=== PATIENT | female | born 1945 | race Caucasian/White ===

== ENCOUNTER → 2016-10-11 | Outpatient (CLI) | payer MEDICARE, BC ==
--- NOTE | 2016-10-11 14:16 | CR ---
EXAMINATION: Left knee HISTORY: Pain COMPARISON: 09/11/2015, 07/23/2015 TECHNIQUE: 2 views FINDINGS/IMPRESSION: Osteophyte formation is noted within the patellofemoral compartment. No fractur e or acute osseous abnormalities noted. There is induration of Hoffa's fat pad without a significant suprapatellar joint effusion.
== END ==
LOC: MW.CHORTHO 11:04
PROVIDERS: ATTEND Orthopaedic Surgery
DX: M25.562 Pain in left knee (principal); M17.12 Unilateral primary osteoarthritis, left knee
CPT/HCPCS: 73560-26-LT; 73560-LT; 99214

== ENCOUNTER 2016-11-07 10:13 | Inpatient (IN) | payer MEDICARE, BC ==
[~2016-11-07 10:13] MED LIST: Acetaminophen 1,000 MG in Premix Bag 1 BAG IV SCH; Famotidine 20 MG/2 ML SDV IVPUSH SCH; Ropivacaine 49.25 ML, EPINEPHrine 0.5 MG, cloNIDine 80 MCG in Sodium Chloride 0.9% 48.4... INJECT SCH; Scopolamine 1.5 MG Transdermal Patch TRDERM SCH; Tranexamic Acid 4,000 MG in Sodium Chloride 0.9% 100 ML IV SCH; ceFAZolin 1 GM in Premix Bag 1 BAG IV SCH; oxyCODONE ER 10 MG TAB.ER PO SCH
--- NOTE | 2016-11-07 10:33 | PCM.OPNOTE ---
- General Post-Op/Procedure Note Date of Surgery/Procedure: 11/07/16 Operative Procedure(s): L TKA Post-Op Diagnosis: DJD L knee Anesthesia Technique: General ET tube, Spinal Primary Surgeon: Nicole Pritchard Online Advertising Manager: Mary Jane Lopez Online Advertising Manager: Marilee Stewart EBSaida in mLs: 50 Condition: Good Free Text/Narrative:: tt=50 min #[id number]
[2016-11-07] MEDS: Lactated Ringers 1,000 ML IV SCH ×2 (10:40→16:06)
--- NOTE | 2016-11-07 11:10 | PCM.PREANE ---
Preanesthetic Assessment - Procedure Proposed Procedure: Left Total Knee Arthroplasty - Anesthesia/Transfusion/Family Hx Anesthesia History: Prior Anesthesia Without Reaction Family History of Anesthesia Reaction: No Transfusion History: Prior Transfusion Without Reaction Intubation History: Unknown - Review of Systems General: No Symptoms Pulmonary: No Symptoms Cardiovascular: Other (hypertension - treated with 3 drug regimen) Gastrointestinal: No symptoms Neurological: Other (pain in bilateral knees) Other: Reports: None - Physical Assessment NPO Status Date: 11/06/16 NPO Status Time: 22:00 Height: 5 ft 6.5 in Weight: 178 lb ASA Class: 3 Mental Status: Alert & Oriented x3 Airway Class: Mallampati = 1 Dentition: Reports: Martha(s) (all - upper and lower) Thyro-Mental Finger Breadths: 3 Mouth Opening Finger Breadths: 3 ROM/Head Extension: Full Lungs: Clear to auscultation, Normal respiratory effort Cardiovascular: Regular Rate, Regular Rhythm, No Murmurs - Allergies Allergies/Adverse Reactions: Allergies Allergy/AdvReac Type Severity Reaction Status Date / Time celecoxib [From Celebrex] Allergy Redness Verified 07/28/16 08:25 fenofibrate [From Tricor] Allergy Arrhythmias Verified 07/28/16 08:25 Sulfa (Sulfonamide Allergy Redness Verified 07/28/16 08:25 Antibiotics) - Blood Blood Available: Yes Product(s) Available: PRBC (T and S) - Anesthesia Plan Pre-Op Medication Ordered: Antacids - Acknowledgements Anesthesia Type Planned: General Anesthesia, Spinal Pt an Appropriate Candidate for the Planned Anesthesia: Yes Alternatives and Risks of Anesthesia Discussed w Pt/Guardian: Yes Pt/Guardian Understands and Agrees with Anesthesia Plan: Yes PreAnesthesia Questionnaire HEENT History: Reports: Retinal detachment Other HEENT History: wears glasses Cardiovascular History: Reports: High cholesterol, Hypertension Gastrointestinal History: Reports: None Genitourinary History: Reports: None 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: Musculoskeletal History: Reports: Arthritis Neurological History: Reports: None Hematologic History: Reports: Blood transfusion(s) Other Hematologic History: blood transfusion prior to hysterectomy - Past Surgical History Head Surgeries/Procedures: Reports: None Other HEENT Surgeries/Procedures: hx surgery for detached retina x3 GI Surgical History: Reports: Colonoscopy Other GI Surgeries/Procedures: hx colonoscopy and hemorrhoidectomy Female Surgical History: Reports: Hysterectomy Neurological Surgical History: Reports: Thoracic spine Other Neurological Surgeries/Procedures: hx back surgery for ruptured disc Musculoskeletal Surgical History: Reports: Other (see below) Other Musculoskeletal Surgeries/Procedures:: hx bunionectomy in jul, 2016, hx back surgery - SUBSTANCE USE Smoking Status *Q: Never Smoker Recreational Drug Use History: No - HOME MEDS Home Medications: Home Meds Atenolol/Chlorthalidone [Atenolol-Chlorthalidone 100-25] 1 tab PO DAILY [History] Lisinopril 40 mg PO DAILY 07/28/16 [History] Rosuvastatin [Crestor] 5 mg PO ASDIRECTED 07/28/16 [History] amLODIPine [Norvasc] 1 tab PO DAILY 07/28/16 [History] cycloSPORINE [Restasis] 1 drop EYEBOTH BID 07/28/16 [History] - CURRENT (IN HOUSE) MEDS Current Meds: Current Medications Famotidine (Pepcid) 40 mg IVPUSH ONARRIVE [facility] Last Admin: 11/07/16 11:00 Dose: 40 mg Acetaminophen 1,000 mg/ Premix 100 mls @ 400 mls/hr IV ONARRIVE [facility] Last Admin: 11/07/16 11:02 Dose: 400 mls/hr Ropivacaine 49.25 ml/Epinephrine HCl 0.5 mg/Clonidine HCl 80 mcg/ Sodium Chloride 99 mls @ 50 mls/min INJECT SEECOMMENT [facility] Lactated Ringer's (Ringers, Lactated) 1,000 mls @ 100 mls/hr IV ASDIRECTED [facility] Last Admin: 11/07/16 10:40 Dose: 100 mls/hr Tranexamic Acid 4,000 mg/ (Sodium Chloride) 140 mls @ 600 mls/hr IV ASDIRECTED [facility] Cefazolin Sodium/Dextrose 1 gm (/ Premix) 50 mls @ 100 mls/hr IV ONCALL [facility] Oxycodone HCl (Oxycontin) 10 mg PO ONARRIVE [facility] Last Admin: 11/07/16 11:00 Dose: 10 mg Scopolamine (Transderm-Scop) 1.5 mg TRDERM ONARRIVE [facility] Last Admin: 11/07/16 11:01 Dose: 1.5 mg
[2016-11-07] MEDS ORDERED: Midazolam 1 MG/ML 2 ML SDV ONE (11:16)
[2016-11-07] MEDS ORDERED: Lidocaine 2% 5 ML SDV ONE (11:16)
[2016-11-07] MEDS ORDERED: Propofol 200 MG/20 ML SDV ONE (11:16)
[2016-11-07] MEDS ORDERED: fentaNYL 100 MCG/2 ML SDV ONE ×2 (11:16→11:31)
[2016-11-07] MEDS ORDERED: Ondansetron 4 MG/2 ML SDV ONE (11:17)
[2016-11-07] MEDS ORDERED: ePHEDrine 50 MG/ML SDV ONE (11:17)
[2016-11-07] MEDS ORDERED: Succinylcholine/Normal Saline 200 MG/10 ML Syringe ONE (11:26)
[2016-11-07] MEDS ORDERED: ceFAZolin 1 GM Vial ONE (13:31)
[2016-11-07] MEDS ORDERED: fentaNYL 100 MCG/2 ML SDV IVPUSH PRN (13:55)
[2016-11-07] MEDS ORDERED: Phenylephrine/Normal Saline 100 MCG/ML 10 ML Syringe ONE (14:00)
[2016-11-07] MEDS ORDERED: Morphine 4 MG/ML Syringe IVPUSH PRN (14:29)
[2016-11-07] MEDS ORDERED: Aluminum Hydroxide/Magnesium Hydroxide/Simethicone Susp 30 ML Cup PO PRN (14:29)
[2016-11-07] MEDS ORDERED: diphenhydrAMINE 25 MG Cap PO PRN (14:29)
[2016-11-07] MEDS ORDERED: Bisacodyl 10 MG Supp RECTAL PRN (14:29)
[2016-11-07] MEDS ORDERED: Rosuvastatin 10 MG Tab PO SCH (14:45)
--- NOTE | 2016-11-07 15:36 | PCM.POSTAN ---
POST ANESTHESIA ASSESSMENT - MENTAL STATUS Mental Status: alert, oriented - VITAL SIGNS Pulse Rate: 89 SaO2: 96 Resp Rate: 16 Blood Pressure: 140/69 - RESPIRATORY Respiratory Status: respiratory rate WNL, airway patent, O2 saturation stable, supplemental oxygen (per nc) - CARDIOVASCULAR CV Status: pulse rate WNL, blood pressure stable - GASTROINTESTINAL GI Status: no symptoms - PAIN Pain Score: 0 (spinal intact) - POST OP HYDRATION Hydration Status: adequate & stable
[2016-11-07] MEDS: Acetaminophen 1,000 MG in Premix Bag 1 BAG IV SCH ×2 (16:25→22:32)
--- NOTE | 2016-11-07 17:42 | CR ---
EXAMINATION: Left knee HISTORY: Arthroplasty COMPARISON: 10/11/2016 TECHNIQUE: 2 views FINDINGS/IMPRESSION: Left total knee hardware is demonstrated in good position and alignment. Posto perative soft tissue changes noted.
[2016-11-07] MEDS: oxyCODONE 5 MG Tab PO PRN (17:55)
[2016-11-07] MEDS: Ketorolac 15 MG/ML SDV IVPUSH SCH (19:54)
[2016-11-07] MEDS: oxyCODONE ER 10 MG TAB.ER PO SCH (21:18)
[2016-11-07] MEDS: ceFAZolin 2 GM in Premix Bag 1 BAG IV SCH (21:19)
[2016-11-07] MEDS: Docusate Sodium 100 MG Cap PO SCH (21:19)
--- NOTE | 2016-11-07 21:20 | OR ---
SURGEON: Nicole Pritchard MD DATE OF PROCEDURE: 11/07/2016 PREOPERATIVE DIAGNOSIS: Degenerative joint disease, left knee, tricompartmental. POSTOPERATIVE DIAGNOSIS: Degenerative joint disease, left knee, tricompartmental. PROCEDURE: Left total knee arthroplasty using patient specific instrumentation. ASSISTANTS: Mary Jane Lopez PA-C and Marilee Stewart PA-C. ANESTHESIA: Spinal and general. ESTIMATED BLOOD LOSS: 50 mL. TOURNIQUET TIME: 50 minutes. COMPLICATIONS: None. DVT PROPHYLAXIS: PAS boot and MACO hose to the nonoperative leg. IMPLANTS USED: Nestor Persona femoral component size 9 narrow (LPS), tibial component size E, 12-mm all-polyethylene articular insert, and 32-mm all-polyethylene patella. FINDINGS: Intraoperative findings showed tricompartmental degenerative changes with valgus deformity. Wear was noted to be greater in the lateral compartment. Osteophyte formation was also noted. No significant synovitis was found. She did have substantial recurvatum of the knee on her preoperative exam along with the valgus malalignment. 1 g of tranexamic acid was given IV prior to the start of the case. An additional gram was given IV upon deflation of the tourniquet. 1 g of tranexamic acid was given topically into the wound as the cement was allowed to cure. BRIEF HISTORY: Dennise is a 71-year-old female, who has had complaint of progressive left knee pain. She had failed conservative treatment. Due to her lack of response to conservative treatment, I did recommend surgical intervention. The risks and goals of procedure were discussed with the patient and were documented preoperatively. She agreed to proceed. DESCRIPTION OF PROCEDURE: The patient was properly identified and brought to the operating room. The patient was then transferred from the operating room cart and placed on the operating table in a supine position. Anesthesia was administered by the anesthesia staff. After adequate anesthesia was obtained, a well-padded tourniquet was applied to the surgical lower extremity. The lower extremity was then prepped in standard fashion using ChloraPrep solution. It was then sterilely draped. A time-out was performed to ensure correct site and procedure. Preoperative antibiotics were given. The surgical site had been marked preoperatively. An Esmarch was used to exsanguinate the right lower extremity and the tourniquet was inflated. An incision was made over the anterior aspect of the knee. The subcutaneous tissues were dissected down to the level of the fascia. A medial parapatellar approach to the knee was made. A portion of the infrapatellar fat pad was then excised. The distal femur was then exposed. The femoral patient-specific cutting guide was then placed. Pins were also placed. The distal femoral cutting block was placed and the distal femoral cut was made. Instrumentation was then removed. Both Whitesides' line and the epicondylar axis were then marked with electrocautery. The 4-in-1 cutting block was placed. This was placed in a slightly externally rotated position, which corresponded well with the previously drawn lines. The cutting guide was then pinned into position. An Sanjiv wing guide was used to check the depth of resection of our anterior condylar cut and it was felt that no notching would occur. The anterior condylar cut was then made followed by the posterior condylar cut. Both the posterior chamfer and anterior chamfer cuts were then made. The cutting block was then removed along with the excess bony remnants. We then turned our attention to the tibia. The anterior cruciate ligament and posterior cruciate ligament were released and a posterior cruciate ligament retractor was placed to allow the tibia to be pulled anteriorly. The tibial patient-specific guide was then placed on the proximal tibia. This fit anatomically. The pins were then placed. The proximal tibia cutting guide was then placed and screwed into position. The proximal tibial resection was then made with care being taken to protect the patellar tendon. The bony resection was then removed. The remainder of the medial and lateral meniscus were then excised. Care was taken to protect the popliteus tendon. The tibia was then sized to the appropriate size. The distal femur was then elevated. The posterior capsule was stripped off the distal femur both medially and laterally. The posterior capsule along with the medial and lateral gutters were then injected with a standard mixture consisting of clonidine, epinephrine, Morphine, Toradol, and Ropivacaine, unless any allergies were found preoperatively. The femoral component was then placed onto the distal femur in a slightly lateral position. This fit the femur well. A box cut was then made without difficulty. This was then removed. The tibial trial along with the polyethylene liner was then placed. The knee came easily into full extension and was stable to varus and valgus stressing both in full extension and flexion. Any additional releases were performed at this time. We then returned our attention to the patella. The patella was everted and towel clamps were used to hold the patella in position. It was resected to a 15 millimeter thickness. It was then sized to the appropriate size. It was prepared in the usual fashion after placing the predetermined size clamps. This was placed in a slightly superior and medial position. The clamp was then removed. The patellar trial button was placed. The knee was taken through a range of motion using the no-touch technique. The patella tracked centrally. A drop quan was then placed to check alignment. All instruments were then removed from the knee. The tibial sizer was then placed on the tibia. The tibia was prepared in the usual fashion using the reamer and broach. This was then removed. All bony surfaces were copiously irrigated with Pulsavac solution. They were then suctioned dry. Cement was prepared on the back table in the usual manner. Once it was prepared, the bone ends were again suctioned dry. The tibia was cemented into place first. This was malleted into position. Excess cement was then cleared. The femur was then placed in a similar manner. We placed the polyethylene trial into place and the knee was brought into full extension. An axial load was placed while keeping the knee in full extension. The patella button was also cemented into position and the clamp was used to hold this in place as the cement was allowed to cure. After we had adequate curing of the cement, the knee was again taken through a range of motion. The size of the polyethylene was then determined. The polyethylene trial was then removed. The tibial tray was suctioned to make sure there was no remaining soft tissue or cement. Excess cement was cleared from around the edges of the prosthesis as well. The tourniquet was then deflated. We were able to observe for any excess bleeding and none was noted. Electrocautery was used to maintain hemostasis. The retractors were again placed and the predetermined polyethylene was then placed. This was locked into position without difficulty. The knee was again taken through a range of motion with no change from the prior exam. The wound was then copiously irrigated with Pulsavac solution. The fascial layer was closed with Number One Vicryl. The subcutaneous tissues were closed with 2-0 Vicryl. The skin was closed with samuel. Xeroform gauze was placed over the wound and a bulky dressing was applied. The patient was then awakened from anesthesia and transferred back to the operating room cart. They were brought to the recovery room in stable condition. All needle and sponge counts were correct. LESA PARKER /[id number]
[2016-11-07] MEDS: RESTASIS OPTH EYEBOTH SCH (21:25)
[2016-11-08] MEDS: oxyCODONE 5 MG Tab PO PRN ×2 (00:49→12:40)
[2016-11-08] MEDS: Ketorolac 15 MG/ML SDV IVPUSH SCH ×2 (01:01→07:59)
[2016-11-08] MEDS: Lactated Ringers 1,000 ML IV SCH (02:46)
[2016-11-08] MEDS: ceFAZolin 2 GM in Premix Bag 1 BAG IV SCH (04:47)
[2016-11-08] MEDS: Acetaminophen 500 MG Tab PO SCH ×4 (04:49→23:08)
[2016-11-08] MEDS: Ondansetron 4 MG/2 ML SDV IV PRN (04:50)
[2016-11-08] MEDS ORDERED: Sodium Chloride 0.9% 10 ML Syringe FLUSH PRN (08:01)
[2016-11-08] MEDS ORDERED: Sodium Chloride 0.9% 2.5 ML Syringe FLUSH PRN (08:01)
--- NOTE | 2016-11-08 08:06 | PCM.SURGPN ---
<Mary Jane Lopez R - Last Filed: 11/08/16 08:01> - General Info Date of Service: 11/08/16 Date of Surgery/Procedure: 11/07/16 POD#: 1 Functional Status: Reports: pain controlled - Review of Systems General: Reports: No Symptoms Pulmonary: Denies: shortness of breath Cardiovascular: Denies: Chest Pain Gastrointestinal: Reports: Nausea, Vomiting Musculoskeletal: Reports: leg pain Systems Review Comment:: pt resting comfortably in bed pain controlled c/o nausea/vomiting overnight, maybe improved with zofran, pt can't recall no specific concerns today - Patient Data Vitals - most recent: Last Vital Signs Temp 97.4 F 11/08/16 04:00 Pulse 73 11/08/16 04:00 Resp 14 11/08/16 04:00 BP 124/69 11/08/16 04:00 Pulse Ox 93 L 11/08/16 04:00 Weight - most recent: 80.739 kg I&O - last 24 hours: Intake & Output 11/07/16 11/08/16 11/08/16 22:59 06:59 14:59 Intake Total 2700 900 Output Total 150 1150 Balance 2550 -250 Lab Results last 24 hrs: Laboratory Results - last 24 hr 11/07/16 11/08/16 Range/Units 10:45 05:13 Hgb 11.3 L (12.0-16.0) g/dL Hct 34.4 L (36.0-46.0) % Blood Type B POSITIVE Antibody Screen NEGATIVE Med Orders - Current: Current Medications Acetaminophen (Tylenol Extra Strength) 1,000 mg PO Q6H YOON Last Admin: 11/08/16 04:49 Dose: 1,000 mg Al Hydroxide/Mg Hydroxide (Mag-Al Plus) 30 ml PO Q4H PRN PRN Reason: indigestion Amlodipine Besylate (Norvasc) 2.5 mg PO DAILY [facility] Aspirin (Aspirin) 325 mg PO BID YOON Atenolol (Tenormin) 100 mg PO DAILY [facility] Bisacodyl (Dulcolax) 10 mg RECTAL DAILY PRN PRN Reason: Constipation Chlorthalidone (Chlorthalidone) 25 mg PO DAILY [facility] Diphenhydramine HCl (Benadryl) 25 - 50 mg PO Q6H PRN PRN Reason: Itching Docusate Sodium (Colace) 100 mg PO BID [facility] Last Admin: 11/07/16 21:19 Dose: 100 mg Famotidine (Pepcid) 40 mg PO DAILY [facility] Fentanyl (Sublimaze) 50 mcg IVPUSH Q5M PRN PRN Reason: Pain (severe 7-10) Stop: 11/08/16 13:55 Ketorolac Tromethamine (Toradol) 15 mg IVPUSH Q6H [facility] Stop: 11/08/16 09:00 Last Admin: 11/08/16 07:59 Dose: 15 mg Lisinopril (Prinivil) 40 mg PO DAILY [facility] Morphine Sulfate (Morphine) 1 - 3 mg IVPUSH Q3H PRN PRN Reason: Pain Last Admin: 11/07/16 18:48 Dose: 2 mg Ondansetron HCl (Zofran) 4 mg IV Q6HR PRN PRN Reason: NAUSEA/VOMITING Last Admin: 11/08/16 04:50 Dose: 4 mg Oxycodone HCl (Oxycontin) 10 mg PO ONARRIVE [facility] Last Admin: 11/07/16 11:00 Dose: 10 mg Oxycodone HCl (Oxycodone) 5 - 10 mg PO Q4H PRN PRN Reason: Pain Last Admin: 11/08/16 00:49 Dose: 10 mg Oxycodone HCl (Oxycontin) 10 mg PO Q12HR [facility] Last Admin: 11/07/16 21:18 Dose: 10 mg Restasis ( Cyclosporine) Opth Drops 1 each EYEBOTH BID [facility] Last Admin: 11/07/16 21:25 Dose: Not Given Rosuvastatin Calcium (Crestor) 5 mg PO ASDIRECTED [facility] Scopolamine (Transderm-Scop) 1.5 mg TRDERM ONARRIVE [facility] Last Admin: 11/07/16 11:01 Dose: 1.5 mg Discontinued Medications Cefazolin Sodium (Ancef) Confirm Administered Dose 1 gm .ROUTE .[facility] ONE Stop: 11/07/16 13:32 Ephedrine Sulfate (Ephedrine Sulfate) Confirm Administered Dose 50 mg .ROUTE .STK-MED ONE Stop: 11/07/16 11:18 Famotidine (Pepcid) 40 mg IVPUSH ONARRIVE [facility] Last Admin: 11/07/16 11:00 Dose: 40 mg Fentanyl (Sublimaze) Confirm Administered Dose 200 mcg .ROUTE .[facility] ONE Stop: 11/07/16 11:17 Fentanyl (Sublimaze) Confirm Administered Dose 100 mcg .ROUTE .[facility] ONE Stop: 11/07/16 11:32 Acetaminophen 1,000 mg/ Premix 100 mls @ 400 mls/hr IV ONARRIVE [facility] Last Admin: 11/07/16 11:02 Dose: 400 mls/hr Ropivacaine 49.25 ml/Epinephrine HCl 0.5 mg/Clonidine HCl 80 mcg/ Sodium Chloride 99 mls @ 50 mls/min INJECT SEECOMMENT [facility] Lactated Ringer's (Ringers, Lactated) 1,000 mls @ 100 mls/hr IV ASDIRECTED [facility] Last Admin: 11/08/16 02:46 Dose: 100 mls/hr Tranexamic Acid 4,000 mg/ (Sodium Chloride) 140 mls @ 600 mls/hr IV ASDIRECTED [facility] Cefazolin Sodium/Dextrose 1 gm (/ Premix) 50 mls @ 100 mls/hr IV ONCALL [facility] Cefazolin Sodium/Dextrose (Ancef) Confirm Administered Dose 50 mls @ as directed .ROUTE .[facility] ONE Stop: 11/07/16 11:18 Acetaminophen 1,000 mg/ Premix 100 mls @ 400 mls/hr IV Q6H [facility] Stop: 11/07/16 23:14 Last Admin: 11/07/16 22:32 Dose: 400 mls/hr Cefazolin Sodium/Dextrose 2 gm (/ Premix) 50 mls @ 100 mls/hr IV Q8H [facility] Stop: 11/08/16 05:29 Last Admin: 11/08/16 04:47 Dose: 100 mls/hr Lidocaine (Xylocaine-Mpf 2%) Confirm Administered Dose 10 ml .ROUTE .[facility] ONE Stop: 11/07/16 11:17 Midazolam HCl (Versed 1 Mg/Ml) Confirm Administered Dose 2 mg .ROUTE .[facility] ONE Stop: 11/07/16 11:17 Ondansetron HCl (Zofran) Confirm Administered Dose 4 mg .ROUTE .[facility] ONE Stop: 11/07/16 11:18 Phenylephrine HCl (Phenylephrine In Ns 100 Mcg/Ml) Confirm Administered Dose 1 mg .ROUTE .[facility] ONE Stop: 11/07/16 14:01 Propofol (Diprivan 20 Ml) Confirm Administered Dose 400 mg .ROUTE .STK-MED ONE Stop: 11/07/16 11:17 Succinylcholine Chloride (Succinylcholine In Ns Pf) Confirm Administered Dose 200 mg .ROUTE .STK-MED ONE Stop: 11/07/16 11:27 - Exam Wound/Incisions: dressing dry and intact General: alert, oriented Cardiovascular: Regular Rate, Regular Rhythm Extremities: no edema, normal pulses, no calf tenderness, other (RLE - at/ehl/ gastroc 5/5, dp 2+, sensation intact distally. ) Physical Findings Comment:: vss, afeb UO 1600mL hgb 11.3 - Problem List Review Problem List Initiated/Reviewed/Updated: Yes - My Orders Last 24 Hours: Active Orders 24 hr Category Date Time Status Patient Status [ADT] Routine ADT 11/07/16 10:31 Active Transfer Patient (Change bed) [ADT] Routine ADT 11/07/16 10:31 Ordered Activity as Tolerated [RC] .Routine Care 11/07/16 14:28 Active Dressing Change [Wound Care] [RC] ASDIRECTED Care 11/07/16 14:28 Active Insert Urinary Catheter [OM.PC] Routine Care 11/07/16 08:00 Ordered Intake and Output [RC] Q12H Care 11/07/16 14:28 Active Neurovascular Check [RC] Q2HR Care 11/07/16 14:28 Active Notify Provider Vital Signs [RC] ASDIRECTED Care 11/07/16 14:28 Active RT Incentive Spirometry [RC] ASDIRECTED Care 11/07/16 14:28 Active Remove Bee Catheter [Urinary Catheter Removal] [RC] Care 11/08/16 08:01 Ordered Per Unit Routine Urinary Catheter Assessment [RC] Q4H Care 11/07/16 08:00 Active Vital Signs [RC] Q4H Care 11/07/16 14:28 Active PT Evaluation and Treatment [CONS] Routine Cons 11/07/16 14:28 Active HEMOGLOBIN/HEMATOCRIT,HH [HEME] DAILY Lab 11/09/16 06:00 Ordered HEMOGLOBIN/HEMATOCRIT,HH [HEME] DAILY Lab 11/10/16 06:00 Ordered Acetaminophen [Tylenol Extra Strength] Med 11/08/16 05:00 Active 1,000 mg PO Q6H Alum Hydrox/Mag Hydrox/Simeth [Mag-Al Plus] Med 11/07/16 14:29 Active 30 ml PO Q4H PRN Aspirin Med 11/08/16 09:00 Active 325 mg PO BID Atenolol [Tenormin] Med 11/08/16 09:00 Active 100 mg PO DAILY Bisacodyl [Dulcolax] Med 11/07/16 14:29 Active 10 mg RECTAL DAILY PRN Chlorthalidone Med 11/08/16 09:00 Active 25 mg PO DAILY Docusate Sodium [Colace] Med 11/07/16 21:00 Active 100 mg PO BID Famotidine [Pepcid] Med 11/08/16 09:00 Active 40 mg PO DAILY Ketorolac [Toradol] Med 11/07/16 20:00 Active 15 mg IVPUSH Q6H Lisinopril [Prinivil] Med 11/08/16 09:00 Active 40 mg PO DAILY Morphine Med 11/07/16 14:29 Active 1 - 3 mg IVPUSH Q3H PRN Ondansetron [Zofran] Med 11/07/16 14:29 Active 4 mg IV Q6HR PRN Patient's Own Medication [Ptom] Med 11/07/16 21:00 Active 1 each EYEBOTH BID Rosuvastatin [Crestor] Med 11/07/16 14:45 Active 5 mg PO ASDIRECTED Sodium Chloride 0.9% [Saline Flush] Med 11/08/16 08:01 Ordered 10 ml FLUSH ASDIRECTED PRN Sodium Chloride 0.9% [Saline Flush] Med 11/08/16 08:01 Ordered 2.5 ml FLUSH ASDIRECTED PRN amLODIPine [Norvasc] Med 11/08/16 09:00 Active 2.5 mg PO DAILY diphenhydrAMINE [Benadryl] Med 11/07/16 14:29 Active 25 - 50 mg PO Q6H PRN fentaNYL [Sublimaze] Med 11/07/16 13:55 Active 50 mcg IVPUSH Q5M PRN oxyCODONE Med 11/07/16 14:29 Active 5 - 10 mg PO Q4H PRN oxyCODONE ER [OxyCONTIN] Med 11/07/16 21:00 Active 10 mg PO Q12HR Convert IV to Saline Lock [OM.PC] Routine Oth 11/08/16 08:01 Ordered Ice Therapy [OM.PC] Routine Oth 11/07/16 14:28 Ordered Medication Orders Acetaminophen (Tylenol Extra Strength) 1,000 mg PO Q6H [facility] Last Admin: 11/08/16 04:49 Dose: 1,000 mg Al Hydroxide/Mg Hydroxide (Mag-Al Plus) 30 ml PO Q4H PRN PRN Reason: indigestion Amlodipine Besylate (Norvasc) 2.5 mg PO DAILY [facility] Aspirin (Aspirin) 325 mg PO BID [facility] Atenolol (Tenormin) 100 mg PO DAILY [facility] Bisacodyl (Dulcolax) 10 mg RECTAL DAILY PRN PRN Reason: Constipation Chlorthalidone (Chlorthalidone) 25 mg PO DAILY [facility] Diphenhydramine HCl (Benadryl) 25 - 50 mg PO Q6H PRN PRN Reason: Itching Docusate Sodium (Colace) 100 mg PO BID [facility] Last Admin: 11/07/16 21:19 Dose: 100 mg Famotidine (Pepcid) 40 mg PO DAILY [facility] Fentanyl (Sublimaze) 50 mcg IVPUSH Q5M PRN PRN Reason: Pain (severe 7-10) Stop: 11/08/16 13:55 Ketorolac Tromethamine (Toradol) 15 mg IVPUSH Q6H [facility] Stop: 11/08/16 09:00 Last Admin: 11/08/16 07:59 Dose: 15 mg Admin: 11/08/16 01:01 Dose: 15 mg Admin: 11/07/16 19:54 Dose: 15 mg Lisinopril (Prinivil) 40 mg PO DAILY [facility] Morphine Sulfate (Morphine) 1 - 3 mg IVPUSH Q3H PRN PRN Reason: Pain Last Admin: 11/07/16 18:48 Dose: 2 mg Ondansetron HCl (Zofran) 4 mg IV Q6HR PRN PRN Reason: NAUSEA/VOMITING Last Admin: 11/08/16 04:50 Dose: 4 mg Oxycodone HCl (Oxycontin) 10 mg PO ONARRIVE [facility] Last Admin: 11/07/16 11:00 Dose: 10 mg Oxycodone HCl (Oxycodone) 5 - 10 mg PO Q4H PRN PRN Reason: Pain Last Admin: 11/08/16 00:49 Dose: 10 mg Admin: 11/07/16 17:55 Dose: 10 mg Oxycodone HCl (Oxycontin) 10 mg PO Q12HR [facility] Last Admin: 11/07/16 21:18 Dose: 10 mg Restasis ( Cyclosporine) Opth Drops 1 each EYEBOTH BID [facility] Last Admin: 11/07/16 21:25 Dose: Rosuvastatin Calcium (Crestor) 5 mg PO ASDIRECTED [facility] Scopolamine (Transderm-Scop) 1.5 mg TRDERM ONARRIVE [facility] Last Admin: 11/07/16 11:01 Dose: 1.5 mg - Assessment Assessment (Free Text/Narrative):: POD#1 L TKA acute posthemorrhagic anemia - Plan Plan (Free Text/Narrative):: DC IV fluids, saline lock IV DC bee continue pain management PT today ASA 325mg PO BID for DVT prophylaxis pt will require FWW for ambulation assistance s/p L TKA until improved mobility/ stability, increased LLE strength dispo: home likely tomorrow afternoon or 11/10/16 AM after adequate PT <Nicole Pritchard - Last Filed: 11/08/16 11:32> - Patient Data Vitals - most recent: Last Vital Signs Temp 97.5 F 11/08/16 08:00 Pulse 76 11/08/16 09:28 Resp 20 11/08/16 08:00 BP 138/72 11/08/16 09:28 Pulse Ox 91 L 11/08/16 08:00 I&O - last 24 hours: Intake & Output 11/07/16 11/08/16 11/08/16 22:59 06:59 14:59 Intake Total 2700 900 467 Output Total 150 1150 Balance 2550 -250 467 Lab Results last 24 hrs: Laboratory Results - last 24 hr 11/07/16 11/08/16 Range/Units 10:45 05:13 Hgb 11.3 L (12.0-16.0) g/dL Hct 34.4 L (36.0-46.0) % Blood Type B POSITIVE Antibody Screen NEGATIVE Med Orders - Current: Current Medications Acetaminophen (Tylenol Extra Strength) 1,000 mg PO Q6H [facility] Last Admin: 11/08/16 10:58 Dose: 1,000 mg Al Hydroxide/Mg Hydroxide (Mag-Al Plus) 30 ml PO Q4H PRN PRN Reason: indigestion Amlodipine Besylate (Norvasc) 2.5 mg PO DAILY [facility] Last Admin: 11/08/16 09:28 Dose: 2.5 mg Aspirin (Aspirin) 325 mg PO BID [facility] Last Admin: 11/08/16 09:27 Dose: 325 mg Atenolol (Tenormin) 100 mg PO DAILY [facility] Last Admin: 11/08/16 09:28 Dose: 100 mg Bisacodyl (Dulcolax) 10 mg RECTAL DAILY PRN PRN Reason: Constipation Chlorthalidone (Chlorthalidone) 25 mg PO DAILY [facility] Last Admin: 11/08/16 09:27 Dose: 25 mg Diphenhydramine HCl (Benadryl) 25 - 50 mg PO Q6H PRN PRN Reason: Itching Docusate Sodium (Colace) 100 mg PO BID [facility] Last Admin: 11/08/16 09:28 Dose: 100 mg Famotidine (Pepcid) 40 mg PO DAILY [facility] Last Admin: 11/08/16 09:28 Dose: 40 mg Lisinopril (Prinivil) 40 mg PO DAILY [facility] Last Admin: 11/08/16 09:28 Dose: 40 mg Morphine Sulfate (Morphine) 1 - 3 mg IVPUSH Q3H PRN PRN Reason: Pain Last Admin: 11/07/16 18:48 Dose: 2 mg Ondansetron HCl (Zofran) 4 mg IV Q6HR PRN PRN Reason: NAUSEA/VOMITING Last Admin: 11/08/16 04:50 Dose: 4 mg Oxycodone HCl (Oxycodone) 5 - 10 mg PO Q4H PRN PRN Reason: Pain Last Admin: 11/08/16 00:49 Dose: 10 mg Restasis ( Cyclosporine) Opth Drops 1 each EYEBOTH BID [facility] Last Admin: 11/08/16 09:29 Dose: Not Given Rosuvastatin Calcium (Crestor) 5 mg PO [id number] [facility] Scopolamine (Transderm-Scop) 1.5 mg TRDERM ONARRIVE [facility] Last Admin: 11/07/16 11:01 Dose: 1.5 mg Sodium Chloride (Saline Flush) 10 ml FLUSH ASDIRECTED PRN PRN Reason: Keep Vein Open Sodium Chloride (Saline Flush) 2.5 ml FLUSH ASDIRECTED PRN PRN Reason: Keep Vein Open Discontinued Medications Cefazolin Sodium (Ancef) Confirm Administered Dose 1 gm .ROUTE .[facility] ONE Stop: 11/07/16 13:32 Ephedrine Sulfate (Ephedrine Sulfate) Confirm Administered Dose 50 mg .ROUTE .[facility] ONE Stop: 11/07/16 11:18 Famotidine (Pepcid) 40 mg IVPUSH ONARRIVE [facility] Last Admin: 11/07/16 11:00 Dose: 40 mg Fentanyl (Sublimaze) Confirm Administered Dose 200 mcg .ROUTE .[facility] ONE Stop: 11/07/16 11:17 Fentanyl (Sublimaze) Confirm Administered Dose 100 mcg .ROUTE .[facility] ONE Stop: 11/07/16 11:32 Fentanyl (Sublimaze) 50 mcg IVPUSH Q5M PRN PRN Reason: Pain (severe 7-10) Stop: 11/08/16 13:55 Acetaminophen 1,000 mg/ Premix 100 mls @ 400 mls/hr IV ONARRIVE [facility] Last Admin: 11/07/16 11:02 Dose: 400 mls/hr Ropivacaine 49.25 ml/Epinephrine HCl 0.5 mg/Clonidine HCl 80 mcg/ Sodium Chloride 99 mls @ 50 mls/min INJECT SEECOMMENT [facility] Lactated Ringer's (Ringers, Lactated) 1,000 mls @ 100 mls/hr IV ASDIRECTED [facility] Last Admin: 11/08/16 02:46 Dose: 100 mls/hr Tranexamic Acid 4,000 mg/ (Sodium Chloride) 140 mls @ 600 mls/hr IV ASDIRECTED [facility] Cefazolin Sodium/Dextrose 1 gm (/ Premix) 50 mls @ 100 mls/hr IV ONCALL [facility] Cefazolin Sodium/Dextrose (Ancef) Confirm Administered Dose 50 mls @ as directed .ROUTE .[facility] ONE Stop: 11/07/16 11:18 Acetaminophen 1,000 mg/ Premix 100 mls @ 400 mls/hr IV Q6H [facility] Stop: 11/07/16 23:14 Last Admin: 11/07/16 22:32 Dose: 400 mls/hr Cefazolin Sodium/Dextrose 2 gm (/ Premix) 50 mls @ 100 mls/hr IV Q8H [facility] Stop: 11/08/16 05:29 Last Admin: 11/08/16 04:47 Dose: 100 mls/hr Ketorolac Tromethamine (Toradol) 15 mg IVPUSH Q6H [facility] Stop: 11/08/16 09:00 Last Admin: 11/08/16 07:59 Dose: 15 mg Lidocaine (Xylocaine-Mpf 2%) Confirm Administered Dose 10 ml .ROUTE .[facility] ONE Stop: 11/07/16 11:17 Midazolam HCl (Versed 1 Mg/Ml) Confirm Administered Dose 2 mg .ROUTE .[facility] ONE Stop: 11/07/16 11:17 Ondansetron HCl (Zofran) Confirm Administered Dose 4 mg .ROUTE .[facility]-MED ONE Stop: 11/07/16 11:18 Oxycodone HCl (Oxycontin) 10 mg PO ONARRIVE [facility] Last Admin: 11/07/16 11:00 Dose: 10 mg Oxycodone HCl (Oxycontin) 10 mg PO Q12HR [facility] Last Admin: 11/08/16 09:27 Dose: 10 mg Phenylephrine HCl (Phenylephrine In Ns 100 Mcg/Ml) Confirm Administered Dose 1 mg .ROUTE .[facility] ONE Stop: 11/07/16 14:01 Propofol (Diprivan 20 Ml) Confirm Administered Dose 400 mg .ROUTE .[facility] ONE Stop: 11/07/16 11:17 Rosuvastatin Calcium (Crestor) 5 mg PO ASDIRECTED [facility] Succinylcholine Chloride (Succinylcholine In Ns Pf) Confirm Administered Dose 200 mg .ROUTE .STK-MED ONE Stop: 11/07/16 11:27 - My Orders Last 24 Hours: Active Orders 24 hr Category Date Time Status Patient Status [ADT] Routine ADT 11/07/16 10:31 Active Transfer Patient (Change bed) [ADT] Routine ADT 11/07/16 10:31 Ordered Activity as Tolerated [RC] .Routine Care 11/07/16 14:28 Active Dressing Change [Wound Care] [RC] ASDIRECTED Care 11/07/16 14:28 Active Intake and Output [RC] Q12H Care 11/07/16 14:28 Active Neurovascular Check [RC] Q2HR Care 11/07/16 14:28 Active Notify Provider Vital Signs [RC] ASDIRECTED Care 11/07/16 14:28 Active RT Incentive Spirometry [RC] ASDIRECTED Care 11/07/16 14:28 Active Remove Bee Catheter [Urinary Catheter Removal] [RC] Care 11/08/16 08:01 Active Per Unit Routine Vital Signs [RC] Q4H Care 11/07/16 14:28 Active PT Evaluation and Treatment [CONS] Routine Cons 11/07/16 14:28 Active HEMOGLOBIN/HEMATOCRIT,HH [HEME] DAILY Lab 11/09/16 06:00 Ordered HEMOGLOBIN/HEMATOCRIT,HH [HEME] DAILY Lab 11/10/16 06:00 Ordered Acetaminophen [Tylenol Extra Strength] Med 11/08/16 05:00 Active 1,000 mg PO Q6H Alum Hydrox/Mag Hydrox/Simeth [Mag-Al Plus] Med 11/07/16 14:29 Active 30 ml PO Q4H PRN Aspirin Med 11/08/16 09:00 Active 325 mg PO BID Atenolol [Tenormin] Med 11/08/16 09:00 Active 100 mg PO DAILY Bisacodyl [Dulcolax] Med 11/07/16 14:29 Active 10 mg RECTAL DAILY PRN Chlorthalidone Med 11/08/16 09:00 Active 25 mg PO DAILY Docusate Sodium [Colace] Med 11/07/16 21:00 Active 100 mg PO BID Famotidine [Pepcid] Med 11/08/16 09:00 Active 40 mg PO DAILY Lisinopril [Prinivil] Med 11/08/16 09:00 Active 40 mg PO DAILY Morphine Med 11/07/16 14:29 Active 1 - 3 mg IVPUSH Q3H PRN Ondansetron [Zofran] Med 11/07/16 14:29 Active 4 mg IV Q6HR PRN Patient's Own Medication [Ptom] Med 11/07/16 21:00 Active 1 each EYEBOTH BID Rosuvastatin [Crestor] Med 11/09/16 21:00 Active 5 mg PO [id number] Sodium Chloride 0.9% [Saline Flush] Med 11/08/16 08:01 Active 10 ml FLUSH ASDIRECTED PRN Sodium Chloride 0.9% [Saline Flush] Med 11/08/16 08:01 Active 2.5 ml FLUSH ASDIRECTED PRN amLODIPine [Norvasc] Med 11/08/16 09:00 Active 2.5 mg PO DAILY diphenhydrAMINE [Benadryl] Med 11/07/16 14:29 Active 25 - 50 mg PO Q6H PRN oxyCODONE Med 11/07/16 14:29 Active 5 - 10 mg PO Q4H PRN Convert IV to Saline Lock [OM.PC] Routine Ot 11/08/16 08:01 Ordered Ice Therapy [OM.PC] Routine Ot 11/07/16 14:28 Ordered Medication Orders Acetaminophen (Tylenol Extra Strength) 1,000 mg PO Q6H [facility] Last Admin: 11/08/16 10:58 Dose: 1,000 mg Admin: 11/08/16 04:49 Dose: 1,000 mg Al Hydroxide/Mg Hydroxide (Mag-Al Plus) 30 ml PO Q4H PRN PRN Reason: indigestion Amlodipine Besylate (Norvasc) 2.5 mg PO DAILY [facility] Last Admin: 11/08/16 09:28 Dose: 2.5 mg Aspirin (Aspirin) 325 mg PO BID [facility] Last Admin: 11/08/16 09:27 Dose: 325 mg Atenolol (Tenormin) 100 mg PO DAILY [facility] Last Admin: 11/08/16 09:28 Dose: 100 mg Bisacodyl (Dulcolax) 10 mg RECTAL DAILY PRN PRN Reason: Constipation Chlorthalidone (Chlorthalidone) 25 mg PO DAILY [facility] Last Admin: 11/08/16 09:27 Dose: 25 mg Diphenhydramine HCl (Benadryl) 25 - 50 mg PO Q6H PRN PRN Reason: Itching Docusate Sodium (Colace) 100 mg PO BID [facility] Last Admin: 11/08/16 09:28 Dose: 100 mg Admin: 11/07/16 21:19 Dose: 100 mg Famotidine (Pepcid) 40 mg PO DAILY [facility] Last Admin: 11/08/16 09:28 Dose: 40 mg Lisinopril (Prinivil) 40 mg PO DAILY [facility] Last Admin: 11/08/16 09:28 Dose: 40 mg Morphine Sulfate (Morphine) 1 - 3 mg IVPUSH Q3H PRN PRN Reason: Pain Last Admin: 11/07/16 18:48 Dose: 2 mg Ondansetron HCl (Zofran) 4 mg IV Q6HR PRN PRN Reason: NAUSEA/VOMITING Last Admin: 11/08/16 04:50 Dose: 4 mg Oxycodone HCl (Oxycodone) 5 - 10 mg PO Q4H PRN PRN Reason: Pain Last Admin: 11/08/16 00:49 Dose: 10 mg Admin: 11/07/16 17:55 Dose: 10 mg Restasis ( Cyclosporine) Opth Drops 1 each EYEBOTH BID [facility] Last Admin: 11/08/16 09:29 Dose: Admin: 11/07/16 21:25 Dose: Rosuvastatin Calcium (Crestor) 5 mg PO [id number] [facility] Scopolamine (Transderm-Scop) 1.5 mg TRDERM ONARRIVE [facility] Last Admin: 11/07/16 11:01 Dose: 1.5 mg Sodium Chloride (Saline Flush) 10 ml FLUSH ASDIRECTED PRN PRN Reason: Keep Vein Open Sodium Chloride (Saline Flush) 2.5 ml FLUSH ASDIRECTED PRN PRN Reason: Keep Vein Open - Plan Plan (Free Text/Narrative):: Patient seen and examined. Agree with above note. Sitting up in chair. Some nausea this am, better now. Pain controlled. 1. d/c oxycontin as it may be contributing to nausea 2. oxycodone and tylenol for pain 3. mobilize with PT 4. SCD, MACO layne, ASA for DVT prophylaxis 5. possible d/c home tomorrow
[2016-11-08] MEDS: Aspirin 325 MG Tab PO SCH ×2 (09:27→20:43)
[2016-11-08] MEDS: Chlorthalidone 25 MG Tab PO SCH (09:27)
[2016-11-08] MEDS: oxyCODONE ER 10 MG TAB.ER PO SCH (09:27)
[2016-11-08] MEDS: Lisinopril 10 MG Tab PO SCH (09:28)
[2016-11-08] MEDS: amLODIPine 2.5 MG Tab PO SCH (09:28)
[2016-11-08] MEDS: Famotidine 20 MG Tab PO SCH (09:28)
[2016-11-08] MEDS: Docusate Sodium 100 MG Cap PO SCH ×2 (09:28→20:44)
[2016-11-08] MEDS: Atenolol 50 MG Tab PO SCH (09:28)
[2016-11-08] MEDS: RESTASIS OPTH EYEBOTH SCH (09:29)
--- NOTE | 2016-11-08 12:15 | PCM48HPAN ---
Post Anesthesia Note - EVALUATION WITHIN 48HRS OF ANESTHETIC Vital Signs in Normal Range: Yes Patient Participated in Evaluation: Yes Respiratory Function Stable: Yes Airway Patent: Yes Cardiovascular Function Stable: Yes Hydration Status Stable: Yes Pain Control Satisfactory: Yes Nausea and Vomiting Control Satisfactory: Yes Mental Status Recovered: Yes
[2016-11-08] MEDS ORDERED: Carboxymethylcellulose Sodium 0.5% Ophth Soln 0.4 ML UD Box of 30 EYEBOTH PRN (20:50)
[2016-11-08] MEDS ORDERED: Mineral Oil/Petrolatum Ophth Oint 3.5 GM Tube EYEBOTH SCH (21:00)
[2016-11-09] MEDS: RESTASIS OPTH EYEBOTH SCH ×2 (00:31→10:17)
[2016-11-09] MEDS: Acetaminophen 500 MG Tab PO SCH ×2 (04:55→10:14)
[2016-11-09] MEDS: Ondansetron 4 MG/2 ML SDV IV PRN (07:21)
[2016-11-09] MEDS: oxyCODONE 5 MG Tab PO PRN (07:23)
--- NOTE | 2016-11-09 08:06 | PCM.SURGPN ---
- General Info Date of Service: 11/09/16 Date of Surgery/Procedure: 11/07/16 POD#: 2 Functional Status: Reports: pain controlled - Review of Systems General: Reports: No Symptoms Pulmonary: Denies: shortness of breath Cardiovascular: Denies: Chest Pain Gastrointestinal: Denies: Nausea Systems Review Comment:: pt resting comfortably in bed no specific concerns today pain controlled has been OOB today so slightly increased this morning - Patient Data Vitals - most recent: Last Vital Signs Temp 97.9 F 11/09/16 04:00 Pulse 71 11/09/16 04:00 Resp 16 11/09/16 04:00 BP 131/70 11/09/16 04:00 Pulse Ox 94 L 11/09/16 04:00 Weight - most recent: 80.739 kg I&O - last 24 hours: Intake & Output 11/08/16 11/09/16 11/09/16 22:59 06:59 14:59 Intake Total 490 600 Output Total 350 500 Balance 140 100 Lab Results last 24 hrs: Laboratory Results - last 24 hr 11/09/16 Range/Units 04:17 Hgb 10.3 L (12.0-16.0) g/dL Hct 30.5 L (36.0-46.0) % Med Orders - Current: Current Medications Acetaminophen (Tylenol Extra Strength) 1,000 mg PO Q6H [facility] Last Admin: 11/09/16 04:55 Dose: 1,000 mg Al Hydroxide/Mg Hydroxide (Mag-Al Plus) 30 ml PO Q4H PRN PRN Reason: indigestion Amlodipine Besylate (Norvasc) 2.5 mg PO DAILY [facility] Last Admin: 11/08/16 09:28 Dose: 2.5 mg Artificial Tears (Refresh Plus 0.5%) 1 each EYEBOTH ASDIRECTED PRN PRN Reason: Dry Eyes Aspirin (Aspirin) 325 mg PO BID [facility] Last Admin: 11/08/16 20:43 Dose: 325 mg Atenolol (Tenormin) 100 mg PO DAILY [facility] Last Admin: 11/08/16 09:28 Dose: 100 mg Bisacodyl (Dulcolax) 10 mg RECTAL DAILY PRN PRN Reason: Constipation Chlorthalidone (Chlorthalidone) 25 mg PO DAILY [facility] Last Admin: 11/08/16 09:27 Dose: 25 mg Diphenhydramine HCl (Benadryl) 25 - 50 mg PO Q6H PRN PRN Reason: Itching Docusate Sodium (Colace) 100 mg PO BID [facility] Last Admin: 11/08/16 20:44 Dose: 100 mg Famotidine (Pepcid) 40 mg PO DAILY [facility] Last Admin: 11/08/16 09:28 Dose: 40 mg Lisinopril (Prinivil) 40 mg PO DAILY [facility] Last Admin: 11/08/16 09:28 Dose: 40 mg Mineral Oil/White Petrolatum (Lacri-Lube S.O.P Oint) 1 gm EYEBOTH BEDTIME [facility] Last Admin: 11/09/16 04:54 Dose: 1 applic Morphine Sulfate (Morphine) 1 - 3 mg IVPUSH Q3H PRN PRN Reason: Pain Last Admin: 11/07/16 18:48 Dose: 2 mg Ondansetron HCl (Zofran) 4 mg IV Q6HR PRN PRN Reason: NAUSEA/VOMITING Last Admin: 11/09/16 07:21 Dose: 4 mg Oxycodone HCl (Oxycodone) 5 - 10 mg PO Q4H PRN PRN Reason: Pain Last Admin: 11/09/16 07:23 Dose: 10 mg Restasis ( Cyclosporine) Opth Drops 1 each EYEBOTH BID [facility] Last Admin: 11/09/16 00:31 Dose: Not Given Rosuvastatin Calcium (Crestor) 5 mg PO [id number] [facility] Scopolamine (Transderm-Scop) 1.5 mg TRDERM ONARRIVE [facility] Last Admin: 11/07/16 11:01 Dose: 1.5 mg Sodium Chloride (Saline Flush) 10 ml FLUSH ASDIRECTED PRN PRN Reason: Keep Vein Open Sodium Chloride (Saline Flush) 2.5 ml FLUSH ASDIRECTED PRN PRN Reason: Keep Vein Open Discontinued Medications Cefazolin Sodium (Ancef) Confirm Administered Dose 1 gm .ROUTE .STK-MED ONE Stop: 11/07/16 13:32 Ephedrine Sulfate (Ephedrine Sulfate) Confirm Administered Dose 50 mg .ROUTE .STK-MED ONE Stop: 11/07/16 11:18 Famotidine (Pepcid) 40 mg IVPUSH ONARRIVE [facility] Last Admin: 11/07/16 11:00 Dose: 40 mg Fentanyl (Sublimaze) Confirm Administered Dose 200 mcg .ROUTE .[facility]-MED ONE Stop: 11/07/16 11:17 Fentanyl (Sublimaze) Confirm Administered Dose 100 mcg .ROUTE .[facility] ONE Stop: 11/07/16 11:32 Fentanyl (Sublimaze) 50 mcg IVPUSH Q5M PRN PRN Reason: Pain (severe 7-10) Stop: 11/08/16 13:55 Acetaminophen 1,000 mg/ Premix 100 mls @ 400 mls/hr IV ONARRIVE [facility] Last Admin: 11/07/16 11:02 Dose: 400 mls/hr Ropivacaine 49.25 ml/Epinephrine HCl 0.5 mg/Clonidine HCl 80 mcg/ Sodium Chloride 99 mls @ 50 mls/min INJECT SEECOMMENT [facility] Lactated Ringer's (Ringers, Lactated) 1,000 mls @ 100 mls/hr IV ASDIRECTED [facility] Last Admin: 11/08/16 02:46 Dose: 100 mls/hr Tranexamic Acid 4,000 mg/ (Sodium Chloride) 140 mls @ 600 mls/hr IV ASDIRECTED [facility] Cefazolin Sodium/Dextrose 1 gm (/ Premix) 50 mls @ 100 mls/hr IV ONCALL [facility] Cefazolin Sodium/Dextrose (Ancef) Confirm Administered Dose 50 mls @ as directed .ROUTE .[facility] ONE Stop: 11/07/16 11:18 Acetaminophen 1,000 mg/ Premix 100 mls @ 400 mls/hr IV Q6H [facility] Stop: 11/07/16 23:14 Last Admin: 11/07/16 22:32 Dose: 400 mls/hr Cefazolin Sodium/Dextrose 2 gm (/ Premix) 50 mls @ 100 mls/hr IV Q8H [facility] Stop: 11/08/16 05:29 Last Admin: 11/08/16 04:47 Dose: 100 mls/hr Ketorolac Tromethamine (Toradol) 15 mg IVPUSH Q6H [facility] Stop: 11/08/16 09:00 Last Admin: 11/08/16 07:59 Dose: 15 mg Lidocaine (Xylocaine-Mpf 2%) Confirm Administered Dose 10 ml .ROUTE .[facility] ONE Stop: 11/07/16 11:17 Midazolam HCl (Versed 1 Mg/Ml) Confirm Administered Dose 2 mg .ROUTE .STK-MED ONE Stop: 11/07/16 11:17 Ondansetron HCl (Zofran) Confirm Administered Dose 4 mg .ROUTE .STK-MED ONE Stop: 11/07/16 11:18 Oxycodone HCl (Oxycontin) 10 mg PO ONARRIVE [facility] Last Admin: 11/07/16 11:00 Dose: 10 mg Oxycodone HCl (Oxycontin) 10 mg PO Q12HR [facility] Last Admin: 11/08/16 09:27 Dose: 10 mg Phenylephrine HCl (Phenylephrine In Ns 100 Mcg/Ml) Confirm Administered Dose 1 mg .ROUTE .STK-MED ONE Stop: 11/07/16 14:01 Propofol (Diprivan 20 Ml) Confirm Administered Dose 400 mg .ROUTE .STK-MED ONE Stop: 11/07/16 11:17 Rosuvastatin Calcium (Crestor) 5 mg PO ASDIRECTED [facility] Succinylcholine Chloride (Succinylcholine In Ns Pf) Confirm Administered Dose 200 mg .ROUTE .STK-MED ONE Stop: 11/07/16 11:27 - Exam Wound/Incisions: healing well, dressing dry and intact. No: drainage, erythema General: alert, oriented Cardiovascular: Regular Rate, Regular Rhythm Extremities: no edema, normal pulses, no calf tenderness, other (LLE - at/ehl/ gastroc 5/5, dp 2+, sensation intact distally) Physical Findings Comment:: vss, afeb hgb 10.3 - Problem List Review Problem List Initiated/Reviewed/Updated: Yes - My Orders Last 24 Hours: Active Orders 24 hr Category Date Time Status Remove Story Catheter [Urinary Catheter Removal] [RC] Care 11/08/16 08:01 Active Per Unit Routine HEMOGLOBIN/HEMATOCRIT,HH [HEME] DAILY Lab 11/10/16 06:00 Ordered Aspirin Med 11/08/16 09:00 Active 325 mg PO BID Atenolol [Tenormin] Med 11/08/16 09:00 Active 100 mg PO DAILY Carboxymethylcellulose Sodium [Refresh Plus 0.5%] Med 11/08/16 20:50 Active 1 each EYEBOTH ASDIRECTED PRN Chlorthalidone Med 11/08/16 09:00 Active 25 mg PO DAILY Famotidine [Pepcid] Med 11/08/16 09:00 Active 40 mg PO DAILY Lisinopril [Prinivil] Med 11/08/16 09:00 Active 40 mg PO DAILY Mineral Oil/Petrolatum Oint [Lacri-Lube S.O.P Oint] Med 11/08/16 21:00 Active 1 gm EYEBOTH BEDTIME Rosuvastatin [Crestor] Med 11/09/16 21:00 Active 5 mg PO MoWeFr@2100 Sodium Chloride 0.9% [Saline Flush] Med 11/08/16 08:01 Active 10 ml FLUSH ASDIRECTED PRN Sodium Chloride 0.9% [Saline Flush] Med 11/08/16 08:01 Active 2.5 ml FLUSH ASDIRECTED PRN amLODIPine [Norvasc] Med 11/08/16 09:00 Active 2.5 mg PO DAILY Convert IV to Saline Lock [OM.PC] Routine Oth 11/08/16 08:01 Ordered Medication Orders Acetaminophen (Tylenol Extra Strength) 1,000 mg PO Q6H [facility] Last Admin: 11/09/16 04:55 Dose: 1,000 mg Admin: 11/08/16 23:08 Dose: 1,000 mg Admin: 11/08/16 16:47 Dose: 1,000 mg Admin: 11/08/16 10:58 Dose: 1,000 mg Admin: 11/08/16 04:49 Dose: 1,000 mg Al Hydroxide/Mg Hydroxide (Mag-Al Plus) 30 ml PO Q4H PRN PRN Reason: indigestion Amlodipine Besylate (Norvasc) 2.5 mg PO DAILY [facility] Last Admin: 11/08/16 09:28 Dose: 2.5 mg Artificial Tears (Refresh Plus 0.5%) 1 each EYEBOTH ASDIRECTED PRN PRN Reason: Dry Eyes Aspirin (Aspirin) 325 mg PO BID [facility] Last Admin: 11/08/16 20:43 Dose: 325 mg Admin: 11/08/16 09:27 Dose: 325 mg Atenolol (Tenormin) 100 mg PO DAILY [facility] Last Admin: 11/08/16 09:28 Dose: 100 mg Bisacodyl (Dulcolax) 10 mg RECTAL DAILY PRN PRN Reason: Constipation Chlorthalidone (Chlorthalidone) 25 mg PO DAILY [facility] Last Admin: 11/08/16 09:27 Dose: 25 mg Diphenhydramine HCl (Benadryl) 25 - 50 mg PO Q6H PRN PRN Reason: Itching Docusate Sodium (Colace) 100 mg PO BID [facility] Last Admin: 11/08/16 20:44 Dose: 100 mg Admin: 11/08/16 09:28 Dose: 100 mg Admin: 11/07/16 21:19 Dose: 100 mg Famotidine (Pepcid) 40 mg PO DAILY [facility] Last Admin: 11/08/16 09:28 Dose: 40 mg Lisinopril (Prinivil) 40 mg PO DAILY [facility] Last Admin: 11/08/16 09:28 Dose: 40 mg Mineral Oil/White Petrolatum (Lacri-Lube S.O.P Oint) 1 gm EYEBOTH BEDTIME [facility] Last Admin: 11/09/16 04:54 Dose: 1 applic Morphine Sulfate (Morphine) 1 - 3 mg IVPUSH Q3H PRN PRN Reason: Pain Last Admin: 11/07/16 18:48 Dose: 2 mg Ondansetron HCl (Zofran) 4 mg IV Q6HR PRN PRN Reason: NAUSEA/VOMITING Last Admin: 11/09/16 07:21 Dose: 4 mg Admin: 11/08/16 04:50 Dose: 4 mg Oxycodone HCl (Oxycodone) 5 - 10 mg PO Q4H PRN PRN Reason: Pain Last Admin: 11/09/16 07:23 Dose: 10 mg Admin: 11/08/16 12:40 Dose: 10 mg Admin: 11/08/16 00:49 Dose: 10 mg Admin: 11/07/16 17:55 Dose: 10 mg Restasis ( Cyclosporine) Opth Drops 1 each EYEBOTH BID [facility] Last Admin: 11/09/16 00:31 Dose: Admin: 11/08/16 09:29 Dose: Admin: 11/07/16 21:25 Dose: Rosuvastatin Calcium (Crestor) 5 mg PO MoWeFr@2100 [facility] Scopolamine (Transderm-Scop) 1.5 mg TRDERM ONARRIVE [facility] Last Admin: 11/07/16 11:01 Dose: 1.5 mg Sodium Chloride (Saline Flush) 10 ml FLUSH ASDIRECTED PRN PRN Reason: Keep Vein Open Sodium Chloride (Saline Flush) 2.5 ml FLUSH ASDIRECTED PRN PRN Reason: Keep Vein Open - Assessment Assessment (Free Text/Narrative):: POD#1 L TKA acute posthemorrhagic anemia - Plan Plan (Free Text/Narrative):: continue pain management, PT, DVT prophylaxis dressing changed all questions/concerns addressed
[2016-11-09] MEDS: Atenolol 50 MG Tab PO SCH (10:14)
[2016-11-09] MEDS: Aspirin 325 MG Tab PO SCH (10:14)
[2016-11-09] MEDS: Docusate Sodium 100 MG Cap PO SCH (10:14)
[2016-11-09] MEDS: Lisinopril 10 MG Tab PO SCH (10:14)
[2016-11-09] MEDS: amLODIPine 2.5 MG Tab PO SCH (10:14)
[2016-11-09] MEDS: Famotidine 20 MG Tab PO SCH (10:15)
[2016-11-09] MEDS: Chlorthalidone 25 MG Tab PO SCH (10:16)
[2016-11-09 12:16] VITALS: BP 130/60
--- NOTE | 2016-11-09 12:50 | PCM.SN ---
- Free Text/Narrative Note: discharge summary #[id number]
[2016-11-09] MEDS ORDERED: Rosuvastatin 10 MG Tab PO SCH (21:00)
--- NOTE | 2016-11-10 10:11 | DISCH ---
DATE OF DISCHARGE: 11/09/2016 PRIMARY CARE PHYSICIAN: Dejon Covington MD ADMITTING DIAGNOSIS: Degenerative joint disease, left knee, tricompartmental. OTHER MEDICAL DIAGNOSES: 1. Hypertension. 2. Hypercholesterolemia. DISCHARGE DIAGNOSES: 1. Degenerative joint disease, left knee, tricompartmental. 2. Hypertension. 3. Hypercholesterolemia. 4. Acute post hemorrhagic anemia. BRIEF HISTORY: Dennise is a 71-year-old female with progressive complaints of left knee pain. She has tried and failed conservative treatment. At that time, surgical treatment was recommended. On November 07, 2016, the patient underwent a left total knee arthroplasty using patient-specific instrumentation done by Dr. Nicole Pritchard. This was done under spinal anesthesia, with general anesthesia. Estimated blood loss was 50 mL. Tourniquet time was 50 minutes. Upon completion of the procedure, the patient was transferred to the PACU and subsequently to Med/Surg for postoperative care. HOSPITAL COURSE: Postoperatively, the patient did well. She received 2 doses of Ancef postoperatively for a total of 24 hours of antibiotic coverage. Her pain was controlled with a combination of oral and IV pain medications. Physical therapy followed her through her hospital stay. Aspirin 325 mg by mouth twice daily was started on postoperative day #1 as DVT prophylaxis. Her vital signs have been stable. She has been afebrile. Her hemoglobin on the morning of November 09, 2016, was 10.3. She is ambulating well with a wheeled walker. She is tolerating oral intake. Her pain is controlled with oral pain medications. She feels comfortable with discharge to home. DISCHARGE MEDICATIONS: 1. Oxycodone 5 mg. 2. Tylenol extra-strength 500 mg. 3. Colace 100 mg. 4. Aspirin 325 mg. DISCHARGE INSTRUCTIONS: 1. Follow up in clinic 10 to 14 days from the date of procedure. This appointment has been made for the patient. 2. Outpatient physical therapy 2 to 3 times per week for 4 to 6 weeks. 3. Polar Care to the left knee as needed. 4. MACO hose, on in the morning, off in the evening. 5. She is to change her Aquacel dressing on Sunday, November 13, 2016. She should place a new Aquacel dressing and leave that in place until followup in clinic. 6. It is okay to shower over the Aquacel dressing. 7. She may not drive while taking narcotic pain medications. For complete medication reconciliation and discharge instructions, please refer back to the patient's EHR. Should she have questions or concerns prior to followup, she has been advised to return to clinic or call. MISAEL PARKER /[id number] EUGENE
== END 2016-11-09 12:00 | disposition home or self-care (01) | DRG 470 ==
LOC: MW.MS 10:13
PROVIDERS: ADMIT Orthopaedic Surgery; ATTEND Orthopaedic Surgery
PROC: 0SRD0J9 Replacement of Left Knee Joint with Synthetic Substitute, Cemented, Open Approach (ICD-10-PCS; principal; 2016-11-07)
DX: M17.12 Unilateral primary osteoarthritis, left knee (principal); D62 Acute posthemorrhagic anemia; M21.062 Valgus deformity, not elsewhere classified, left knee; M25.762 Osteophyte, left knee; I10 Essential (primary) hypertension; E78.00 Pure hypercholesterolemia, unspecified
CPT/HCPCS: 01402; 36415; 73560-26-LT; 73560-LT; 85014; 85018; 86850; 86900; 86901; 88304; 88311; 97110-GP; 97162-GP; 97530-GP; A9270-GY; C1713; C1776; J0171; J0690; J0735; J1885; J2250; J2270; J2405; J2704; J2795; J3010; J7050; J7120

== ENCOUNTER → 2016-11-17 | Outpatient (CLI) | payer MEDICARE, BC ==
--- NOTE | 2016-11-17 14:36 | CR ---
EXAMINATION: Left knee HISTORY: Artificial joint COMPARISON: 11/07/2016 TECHNIQUE: 3 views FINDINGS/IMPRESSION: Left total knee hardware is demonstrated in stable position and alignment. Post operative soft tissue changes are noted.
== END ==
LOC: MW.CHORTHO 07:50
PROVIDERS: ATTEND Physician Assistant
DX: Z96.652 Presence of left artificial knee joint (principal); Z98.890 Other specified postprocedural states
CPT/HCPCS: 73562-26-LT; 73562-LT

== ENCOUNTER 2020-12-08 03:52 | Emergency (ER) | payer MEDICARE, BC ==
--- NOTE | 2020-12-08 04:29 | EDM.PDOC ---
ED HPI GENERAL MEDICAL PROBLEM - General Chief Complaint: Cardiovascular Problem Stated Complaint: HIGH BLOOD PRESSURE, FAST HEART RATE Time Seen by Provider: 12/08/20 03:55 Source of Information: Reports: Patient History Limitations: Reports: No Limitations - History of Present Illness INITIAL COMMENTS - FREE TEXT/NARRATIVE: Patient is a 75-year-old female presents today for high blood pressure. Patient states that she woke this morning to the bathroom with her Fitbit and showed a heart rate of 104. Patient was #7 check her blood pressure knows her blood pressure is also elevated at 170/100 and was told from previous family members been in hospital at [facility] number greater than 100 was not good so she had some and get checked. Patient current denies any chest pain vision changes urinary symptoms or other complaints. Patient has no complaints here just wanted to be checked out because of elevated numbers. Patient that she does have high blood pressure takes the medication normally the morning. - Related Data Allergies Allergy/AdvReac Type Severity Reaction Status Date / Time celecoxib [From Celebrex] Allergy Redness Verified 12/08/20 04:04 fenofibrate [From Tricor] Allergy Arrhythmias Verified 12/08/20 04:04 Sulfa (Sulfonamide Allergy Redness Verified 12/08/20 04:04 Antibiotics) Home Meds: Home Meds Atenolol/Chlorthalidone [Atenolol-Chlorthalidone 100-25] 1 tab PO DAILY 07/28/16 [History] Lisinopril 40 mg PO DAILY 07/28/16 [History] amLODIPine [Norvasc] 2.5 mg PO DAILY 07/28/16 [History] cycloSPORINE [Restasis] 1 drop EYEBOTH BID 07/28/16 [History] Acetaminophen [Tylenol Extra Strength] 2 tab PO Q6H PRN #100 tablet 11/09/16 [Rx] Carboxymethylcellulose Sodium [Refresh Plus 0.5%] 1 drop EYEBOTH ASDIRECTED 11/09/16 [History] Past Medical History HEENT History: Reports: Retinal Detachment Other HEENT History: wears glasses Cardiovascular History: Reports: High Cholesterol, Hypertension Respiratory History: Reports: None Gastrointestinal History: Reports: None Genitourinary History: Reports: None CARDIOVASCULAR RN History: Reports: Musculoskeletal History: Reports: Arthritis Neurological History: Reports: None Psychiatric History: Reports: None Endocrine/Metabolic History: Reports: None Insulin Pump Model and Video Game Repair Technician: None Hematologic History: Reports: Blood Transfusion(s) Other Hematologic History: blood transfusion prior to hysterectomy Immunologic History: Reports: None Oncologic (Cancer) History: Reports: None Dermatologic History: Reports: None - Infectious Disease History Infectious Disease History: Reports: None - Past Surgical History Head Surgeries/Procedures: Reports: None Other HEENT Surgeries/Procedures: hx surgery for detached retina x3 GI Surgical History: Reports: Colonoscopy Other GI Surgeries/Procedures: hx colonoscopy and hemorrhoidectomy Female Surgical History: Reports: Hysterectomy Neurological Surgical History: Reports: Thoracic Spine Other Neurological Surgeries/Procedures: hx back surgery for ruptured disc Musculoskeletal Surgical History: Reports: Other (See Below) Other Musculoskeletal Surgeries/Procedures:: hx bunionectomy in jul, 2016, hx back surgery Social & Family History - Family History Family Medical History: No Pertinent Family History - Caffeine Use Caffeine Use: Reports: Coffee - Recreational Drug Use Recreational Drug Use: No ED ROS GENERAL - Review of Systems Review Of Systems: See Below Constitutional: Reports: No Symptoms HEENT: Reports: No Symptoms Respiratory: Reports: No Symptoms Cardiovascular: Reports: No Symptoms Endocrine: Reports: No Symptoms GI/Abdominal: Reports: No Symptoms : Reports: No Symptoms Musculoskeletal: Reports: No Symptoms Skin: Reports: No Symptoms Neurological: Reports: No Symptoms Psychiatric: Reports: No Symptoms Hematologic/Lymphatic: Reports: No Symptoms Immunologic: Reports: No Symptoms ED EXAM, GENERAL - Physical Exam Exam: See Below Exam Limited By: No Limitations General Appearance: Alert, WD/WN, No Apparent Distress Ears: Normal External Exam, Hearing Grossly Normal Head: Atraumatic, Normocephalic Respiratory/Chest: No Respiratory Distress, Lungs Clear, Normal Breath Sounds Cardiovascular: Normal Peripheral Pulses, Regular Rate, Rhythm GI/Abdominal: Normal Bowel Sounds, Soft, Non-Tender Back Exam: Normal Inspection, Full Range of Motion, NT Extremities: Normal Inspection, Normal Range of Motion, Non-Tender Neurological: Alert, Oriented, CN II-XII Intact, Normal Cognition, Normal Gait Psychiatric: Normal Affect, Normal Mood Lymphatic: No Adenopathy #1 Interpretation EKG Date: 12/08/20 Time: 03:52 Rhythm: Other (sinus tachy) Rate (Beats/Min): 104 ST-T: Normal Course - Vital Signs Last Recorded V/S: Last Vital Signs Temp 97.7 F 12/08/20 03:55 Pulse 78 12/08/20 05:07 Resp 15 12/08/20 04:49 BP 139/79 12/08/20 05:07 Pulse Ox 94 L 12/08/20 04:49 - Orders/Labs/Meds Orders: Active Orders 24 hr Category Date Time Status EKG Documentation Completion [RC] STAT Care 12/08/20 04:23 Active UA W/EMELY RFLX IF INDICATED [URIN] Stat Lab 12/08/20 05:20 Received Labs: Laboratory Tests 12/08/20 12/08/20 Range/Units 04:02 04:02 WBC 7.26 (4.0-11.0) K/uL RBC 4.55 (4.30-5.90) M/uL Hgb 13.8 (12.0-16.0) g/dL Hct 39.9 (36.0-46.0) % MCV 87.7 (80.0-98.0) fL MCH 30.3 (27.0-32.0) pg MCHC 34.6 (31.0-37.0) g/dL RDW Std Deviation 43.6 (28.0-62.0) fl RDW Coeff of Gricel 14 (11.0-15.0) % Plt Count 218 (150-400) K/uL MPV 12.30 H (7.40-12.00) fL Neut % (Auto) 50.9 (48.0-80.0) % Lymph % (Auto) 40.1 H (16.0-40.0) % [place] % (Auto) 6.2 (0.0-15.0) % Eos % (Auto) 2.1 (0.0-7.0) % Baso % (Auto) 0.7 (0.0-1.5) % Neut # (Auto) 3.7 (1.4-5.7) K/uL Lymph # (Auto) 2.9 H (0.6-2.4) K/uL [place] # (Auto) 0.5 (0.0-0.8) K/uL Eos # (Auto) 0.2 (0.0-0.7) K/uL Baso # (Auto) 0.1 (0.0-0.1) K/uL Nucleated RBC % 0.0 /100WBC Nucleated RBCs # 0 K/uL Sodium 136 (136-145) mmol/L Potassium 3.8 (3.5-5.1) mmol/L Chloride 97 L (98-107) mmol/L Carbon Dioxide 26.4 (21.0-32.0) mmol/L BUN 24 H (7.0-18.0) mg/dL Creatinine 0.8 (0.6-1.0) mg/dL Est Cr Clr Drug Dosing 58.18 mL/min Estimated GFR (MDRD) > 60.0 ml/min Glucose 105 (74-106) mg/dL Calcium 9.3 (8.5-10.1) mg/dL Troponin I < 0.050 (0.000-0.056) ng/mL - Re-Assessments/Exams Free Text/Narrative Re-Assessment/Exam: 12/08/20 05:26 Patient labs UA all reviewed. Patient will be discharged home she remains asymptomatic and blood pressure is improved to 139/79. Departure - Departure Time of Disposition: 05:27 Disposition: Home, Self-Care 01 Condition: Good Clinical Impression: Hypertension Instructions: Hypertension, Adult, [id number] Referrals: Dejon Covington MD [Primary Care Provider] - Forms: ED Department Discharge Additional Instructions: The following information is given to patients seen in the emergency department who are being discharged to home. This information is to outline your options for follow-up care. We provide all patients seen in our emergency department with a follow-up referral. The need for follow-up, as well as the timing and circumstances, are variable depending upon the specifics of your emergency department visit. If you don't have a primary care physician on staff, we will provide you with a referral. We always advise you to contact your personal physician following an emergency department visit to inform them of the circumstance of the visit and for follow-up with them and/or the need for any referrals to a consulting specialist. The emergency department will also refer you to a specialist when appropriate. This referral assures that you have the opportunity for follow-up care with a specialist. All of these measure are taken in an effort to provide you with optimal care, which includes your follow-up. Under all circumstances we always encourage you to contact your private physician who remains a resource for coordinating your care. When calling for follow-up care, please make the office aware that this follow-up is from your recent emergency room visit. If for any reason you are refused follow-up, please contact the [facility] Emergency Department at and asked to speak to the emergency department charge nurse. Please follow up with your primary care physician. If you do not have a primary care physician, see below: [facility] [address] [place] [id number] My [facility] [address] [place] [address] You are seen today because your blood pressure and heart rate were elevated while at home. You on exam did not have any symptoms we did EKG and lab work that were within normal limits. Your heart rate may have increased due to you being nervous about your blood pressure also being high. Right now we do not see any concerning findings if you do develop any chest pain vision changes or other concerning issues please return to the ED. Sepsis Event Note (ED) - Evaluation Sepsis Screening Result: No Definite Risk - Focused Exam Vital Signs: Vital Signs Temp Pulse Resp BP Pulse Ox 12/08/20 05:07 78 139/79 12/08/20 04:49 81 15 94 L 12/08/20 04:40 148/78 H 12/08/20 03:55 97.7 F 102 H 18 177/101 H 97 - My Orders Last 24 Hours: My Active Orders 12/08/20 04:23 EKG Documentation Completion [RC] STAT 12/08/20 05:20 UA W/EMELY RFLX IF INDICATED [URIN] Stat - Assessment/Plan Last 24 Hours: My Active Orders 12/08/20 04:23 EKG Documentation Completion [RC] STAT 12/08/20 05:20 UA W/EMELY RFLX IF INDICATED [URIN] Stat Plan: Is a 75-year-old female presents today for elevated blood pressure. Patient has no symptoms and no complaints on exam. Will obtain EKG labs and reassess and likely discharge home.
[2020-12-08 04:52] LABS: BLOOD UREA NITROGEN,BUN 24 mg/dL (7.0-18.0); CARBON DIOXIDE,CO2 26.4 mmol/L (21.0-32.0); CHLORIDE,CL 97 mmol/L (98-107); GLUCOSE RANDOM 105 mg/dL (74-106); POTASSIUM,K 3.8 mmol/L (3.5-5.1); SODIUM,NA 136 mmol/L (136-145)
[2020-12-08 05:08] VITALS: BP 139/79; PULSE 78
== END 2020-12-08 05:48 | disposition home or self-care (01) ==
LOC: MW.ED 03:52
DX: I10 Essential (primary) hypertension (principal); E78.00 Pure hypercholesterolemia, unspecified; Z88.2 Allergy status to sulfonamides; Z88.6 Allergy status to analgesic agent; Z88.8 Allergy status to other drugs, medicaments and biological substances
CPT/HCPCS: 36415; 80048; 81001; 84484; 85025; 93005; 93010; 99283; 99285-25

== ENCOUNTER 2021-12-07 11:34 | Emergency (ER) | payer MEDICARE, BC ==
[2021-12-07 11:48] VITALS: BP 137/66; PULSE 86
[2021-12-07] MEDS ORDERED: Sodium Chloride 0.9% 1,000 ML IV ONE (11:50)
[2021-12-07 13:10] LABS: CORONAVIRUS COVID-19 NAA NEGATIVE (NEGATIVE); INFLUENZA A NAA NEGATIVE (NEGATIVE); INFLUENZA B NAA NEGATIVE (NEGATIVE)
[2021-12-07 13:17] LABS: CARBON DIOXIDE,CO2 26.7 mmol/L (21.0-32.0); POTASSIUM,K 3.7 mmol/L (3.5-5.1)
== END 2021-12-07 13:49 | disposition home or self-care (01) ==
LOC: MW.ED 11:34
DX: R53.1 Weakness (principal); E78.00 Pure hypercholesterolemia, unspecified; I10 Essential (primary) hypertension; Z88.2 Allergy status to sulfonamides; Z88.8 Allergy status to other drugs, medicaments and biological substances; Z20.822 Contact with and (suspected) exposure to COVID-19
CPT/HCPCS: 0240U; 36415; 71045; 80053; 84484; 85025; 86850; 86900; 86901; 93005; 96360; 99284; J7030; 93010; 99283

== ENCOUNTER 2022-06-14 14:08 | Emergency (ER) | payer MEDICARE, BC ==
[2022-06-14] MEDS ORDERED: Lidocaine 5% 700 MG Patch TOP ONE (17:16)
[2022-06-14] MEDS ORDERED: Ibuprofen 400 MG Tab PO ONE (17:16)
[2022-06-14] MEDS ORDERED: Acetaminophen 325 MG Tab PO ONE (17:16)
[2022-06-14 18:11] VITALS: BP 158/74; PULSE 77
== END 2022-06-14 18:10 | disposition home or self-care (01) ==
LOC: MW.ED 14:08
DX: M25.552 Pain in left hip (principal); I10 Essential (primary) hypertension; Z88.1 Allergy status to other antibiotic agents; Z88.8 Allergy status to other drugs, medicaments and biological substances; Z88.2 Allergy status to sulfonamides; Z79.899 Other long term (current) drug therapy
CPT/HCPCS: 73502; 99283; A9270

== ENCOUNTER 2022-10-25 10:17 | Day surgery (SDC) | payer MEDICARE, BC ==
[~2022-10-25 10:17] MED LIST changes: -Acetaminophen 1,000 MG in Premix Bag 1 BAG IV SCH; -Famotidine 20 MG/2 ML SDV IVPUSH SCH; +Lactated Ringers 1,000 ML IV SCH; -Ropivacaine 49.25 ML, EPINEPHrine 0.5 MG, cloNIDine 80 MCG in Sodium Chloride 0.9% 48.4... INJECT SCH; -Scopolamine 1.5 MG Transdermal Patch TRDERM SCH; +Sodium Chloride 0.9% 10 ML Syringe FLUSH PRN; +Sodium Chloride 0.9% 2.5 ML Syringe FLUSH PRN; +Sodium Chloride 0.9% 20 ML SDV IV PRN; -Tranexamic Acid 4,000 MG in Sodium Chloride 0.9% 100 ML IV SCH; -ceFAZolin 1 GM in Premix Bag 1 BAG IV SCH; -oxyCODONE ER 10 MG TAB.ER PO SCH
[2022-10-25] MEDS ORDERED: Lidocaine 2% 5 ML SDV ONE (11:18)
[2022-10-25] MEDS ORDERED: fentaNYL 100 MCG/2 ML SDV ONE (11:18)
[2022-10-25] MEDS ORDERED: Propofol 200 MG/20 ML SDV ONE (11:18)
[2022-10-25 13:38] VITALS: BP 107/60; PULSE 83
== END 2022-10-25 13:18 | disposition home or self-care (01) ==
LOC: MW.SDS 10:17
PROVIDERS: ATTEND Surgery
DX: Z12.11 Encounter for screening for malignant neoplasm of colon (principal); K57.30 Diverticulosis of large intestine without perforation or abscess without bleeding; K63.5 Polyp of colon; I10 Essential (primary) hypertension; E78.00 Pure hypercholesterolemia, unspecified; Z88.8 Allergy status to other drugs, medicaments and biological substances; Z88.2 Allergy status to sulfonamides; Z79.899 Other long term (current) drug therapy; Z90.49 Acquired absence of other specified parts of digestive tract
CPT/HCPCS: 45380; J2704; J3010; J7120; 00811; 99100; J3490

== ENCOUNTER 2023-11-19 11:21 | Emergency (ER) | payer MEDICARE, BC ==
[2023-11-19 12:19] LABS: BASOPHILS ABSOLUTE AUTO 0.07 K/uL (0.00-0.20); BASOPHILS PERCENT AUTO 1.1 % (0.0-1.0); EOSINOPHILS PERCENT AUTO 3.1 % (0.0-6.0); HEMATOCRIT 35.8 % (37.0-47.0); HEMOGLOBIN 12.2 g/dL (12.0-16.0); IMMATURE GRAN ABSOLUTE AUTO 0.02 K/uL (0.00-0.05); IMMATURE GRAN PERCENT AUTO 0.3 % (0.0-0.4); LYMPHOCYTES ABSOLUTE AUTO 1.99 K/uL (1.00-4.80); LYMPHOCYTES PERCENT AUTO 31.3 % (24.0-44.0); MEAN CORPUSCULAR HEMOGLOBIN 29.4 pg (28.0-32.0); MEAN CORPUSCULAR HGB CONC 34.1 g/dL (32.0-36.0); MEAN CORPUSCULAR VOLUME 86.3 fL (83.0-99.0); MONOCYTES ABSOLUTE AUTO 0.55 K/uL (0.00-0.80); MONOCYTES PERCENT AUTO 8.6 % (0.0-8.0); NEUTROPHILS ABSOLUTE AUTO 3.53 K/uL (1.80-7.70); NEUTROPHILS PERCENT AUTO 55.6 % (41.0-71.0); PLATELET COUNT,PLT 205 K/uL (150-400); RED BLOOD CELL COUNT 4.15 M/uL (4.10-5.30); WHITE BLOOD CELL COUNT,WBC 6.36 K/uL (3.9-11.3)
[2023-11-19] MEDS: Sodium Chloride 0.9% 1,000 ML IV ONE (12:27)
[2023-11-19 12:30] LABS: INR 1.07 (0.86-1.11)
[2023-11-19] MEDS: Propofol 200 MG/20 ML SDV IVPUSH ONE (12:35)
[2023-11-19] MEDS: Ketamine 500 mg/10 ML MDV IV ONE (12:39)
[2023-11-19 12:50] LABS: A/G RATIO 1.1 (0.9-1.6); ALBUMIN 4.2 g/dL (3.4-5.0); BILIRUBIN TOTAL 0.5 mg/dL (0.2-1.0); CALCIUM 9.7 mg/dL (8.5-10.1); CARBON DIOXIDE,CO2 26.6 mmol/L (21.0-32.0); CREATININE 0.8 mg/dL (0.6-1.0); EST CRCL DRUG DOSING (CG) 53.38 mL/min; POTASSIUM,K 3.7 mmol/L (3.5-5.1); PROTEIN TOTAL,TP 7.9 g/dL (6.4-8.2)
[2023-11-19 14:06] VITALS: BP 156/81; PULSE 81
== END 2023-11-19 14:22 | disposition home or self-care (01) ==
LOC: MW.ED 11:21
DX: S73.005A Unspecified dislocation of left hip, initial encounter (principal); I10 Essential (primary) hypertension; E78.00 Pure hypercholesterolemia, unspecified; Z88.2 Allergy status to sulfonamides; Z88.8 Allergy status to other drugs, medicaments and biological substances; Z79.899 Other long term (current) drug therapy; Z90.49 Acquired absence of other specified parts of digestive tract; Z90.710 Acquired absence of both cervix and uterus; Z75.8 Other problems related to medical facilities and other health care; W19.XXXA Unspecified fall, initial encounter
CPT/HCPCS: 27250; 36415; 73502; 80053; 85025; 85610; 86850; 86900; 86901; 99284; J2704; J3490; J7030

== ENCOUNTER 2024-01-25 17:28 | Emergency (ER) | payer MEDICARE, BC ==
[2024-01-25 17:38] VITALS: BP 163/83; PULSE 99
[2024-01-25 18:52] LABS: BASOPHILS ABSOLUTE AUTO 0.09 K/uL (0.00-0.20); BASOPHILS PERCENT AUTO 0.9 % (0.0-1.0); EOSINOPHILS ABSOLUTE AUTO 0.26 K/uL (0.00-0.45); EOSINOPHILS PERCENT AUTO 2.6 % (0.0-6.0); HEMATOCRIT 37.3 % (37.0-47.0); HEMOGLOBIN 12.9 g/dL (12.0-16.0); IMMATURE GRAN ABSOLUTE AUTO 0.04 K/uL (0.00-0.05); IMMATURE GRAN PERCENT AUTO 0.4 % (0.0-0.4); LYMPHOCYTES ABSOLUTE AUTO 2.16 K/uL (1.00-4.80); LYMPHOCYTES PERCENT AUTO 21.3 % (24.0-44.0); MEAN CORPUSCULAR HEMOGLOBIN 29.5 pg (28.0-32.0); MEAN CORPUSCULAR HGB CONC 34.6 g/dL (32.0-36.0); MEAN CORPUSCULAR VOLUME 85.4 fL (83.0-99.0); MEAN PLATELET VOLUME 11.4 fL (9.4-12.3); MONOCYTES ABSOLUTE AUTO 0.61 K/uL (0.00-0.80); NEUTROPHILS ABSOLUTE AUTO 6.98 K/uL (1.80-7.70); NEUTROPHILS PERCENT AUTO 68.8 % (41.0-71.0); PLATELET COUNT,PLT 202 K/uL (150-400); RED BLOOD CELL COUNT 4.37 M/uL (4.10-5.30); WHITE BLOOD CELL COUNT,WBC 10.14 K/uL (3.9-11.3)
[2024-01-25] MEDS: Sodium Chloride 0.9% 10 ML Syringe FLUSH PRN ×2 (18:56→18:57)
[2024-01-25] MEDS: Sodium Chloride 0.9% 2.5 ML Syringe FLUSH PRN ×2 (18:57→18:58)
[2024-01-25] MEDS: Ondansetron 4 MG/2 ML SDV IVPUSH ONE (18:57)
[2024-01-25] MEDS: Morphine 4 MG/ML Syringe IVPUSH ONE ×2 (18:57→20:04)
[2024-01-25 19:11] LABS: A/G RATIO 1.3 (0.9-1.6); ALBUMIN 4.5 g/dL (3.4-5.0); BILIRUBIN TOTAL 0.4 mg/dL (0.2-1.0); CALCIUM 9.5 mg/dL (8.5-10.1); CARBON DIOXIDE,CO2 26.5 mmol/L (21.0-32.0); CREATININE 0.9 mg/dL (0.6-1.0); EST CRCL DRUG DOSING (CG) 49.29 mL/min; INR 1.1 (0.86-1.11); POTASSIUM,K 3.5 mmol/L (3.5-5.1); PROTEIN TOTAL,TP 7.9 g/dL (6.4-8.2)
== END 2024-01-25 22:00 ==
LOC: MW.ED 17:28
DX: T84.021A Dislocation of internal left hip prosthesis, initial encounter (principal); I10 Essential (primary) hypertension; E78.00 Pure hypercholesterolemia, unspecified; Z88.1 Allergy status to other antibiotic agents; Z88.2 Allergy status to sulfonamides; Z88.8 Allergy status to other drugs, medicaments and biological substances; Z79.899 Other long term (current) drug therapy; Z90.710 Acquired absence of both cervix and uterus; X58.XXXA Exposure to other specified factors, initial encounter
CPT/HCPCS: 36415; 73501; 80053; 85025; 85610; 85730; 86850; 86900; 86901; 96374; 96375; 96376; 99285; J2270; J2405; J3490

== ENCOUNTER 2025-01-01 09:47 | Emergency (ER) | payer MEDICARE, BC ==
[2025-01-01] MEDS ORDERED: Sodium Chloride 0.9% 20 ML SDV IV PRN (09:54)
[2025-01-01] MEDS ORDERED: Sodium Chloride 0.9% 10 ML Syringe FLUSH PRN (09:54)
[2025-01-01] MEDS ORDERED: Sodium Chloride 0.9% 2.5 ML Syringe FLUSH PRN (09:54)
[2025-01-01 10:25] LABS: BASOPHILS ABSOLUTE AUTO 0.07 K/uL (0.00-0.20); BASOPHILS PERCENT AUTO 1.2 % (0.0-1.0); EOSINOPHILS ABSOLUTE AUTO 0.14 K/uL (0.00-0.45); EOSINOPHILS PERCENT AUTO 2.4 % (0.0-6.0); HEMATOCRIT 36.5 % (37.0-47.0); HEMOGLOBIN 12.6 g/dL (12.0-16.0); IMMATURE GRAN ABSOLUTE AUTO 0.02 K/uL (0.00-0.05); IMMATURE GRAN PERCENT AUTO 0.3 % (0.0-0.4); LYMPHOCYTES ABSOLUTE AUTO 1.96 K/uL (1.00-4.80); LYMPHOCYTES PERCENT AUTO 33.9 % (24.0-44.0); MEAN CORPUSCULAR HEMOGLOBIN 29.6 pg (28.0-32.0); MEAN CORPUSCULAR HGB CONC 34.5 g/dL (32.0-36.0); MEAN CORPUSCULAR VOLUME 85.9 fL (83.0-99.0); MEAN PLATELET VOLUME 11.4 fL (9.4-12.3); MONOCYTES ABSOLUTE AUTO 0.44 K/uL (0.00-0.80); MONOCYTES PERCENT AUTO 7.6 % (0.0-8.0); NEUTROPHILS ABSOLUTE AUTO 3.15 K/uL (1.80-7.70); NEUTROPHILS PERCENT AUTO 54.6 % (41.0-71.0); PLATELET COUNT,PLT 171 K/uL (150-400); RED BLOOD CELL COUNT 4.25 M/uL (4.10-5.30); WHITE BLOOD CELL COUNT,WBC 5.78 K/uL (3.9-11.3)
[2025-01-01 10:57] LABS: A/G RATIO 1.4 (0.9-1.6); ALBUMIN 4.3 g/dL (3.4-5.0); BILIRUBIN TOTAL 0.4 mg/dL (0.2-1.0); CALCIUM 9.4 mg/dL (8.5-10.1); CARBON DIOXIDE,CO2 28.6 mmol/L (21.0-32.0); EST CRCL DRUG DOSING (CG) 43.63 mL/min; MAGNESIUM 1.8 mg/dL (1.8-2.4); POTASSIUM,K 3.1 mmol/L (3.5-5.1); PROTEIN TOTAL,TP 7.4 g/dL (6.4-8.2)
[2025-01-01] MEDS: Lactated Ringers 1,000 ML IV STA (11:05)
[2025-01-01] MEDS: Potassium Chloride 20 MEQ Tab.ER PO ONE ×3 (11:32→14:30)
[2025-01-01] MEDS: Gadoteridol 279.3 MG/ML 20 ML SDV IVPUSH ONE (13:28)
[2025-01-01] MEDS: Iopamidol 755 MG/ML 500 ML Multipack Bottle IVPUSH STA (13:39)
[2025-01-01 13:52] VITALS: BP 153/82; PULSE 77
[2025-01-01 13:55] LABS: APPEARANCE,URINE CLEAR; BILIRUBIN,URINE NEGATIVE (NEGATIVE); COLOR,URINE YELLOW; GLUCOSE,URINE NEGATIVE (NEGATIVE); KETONES,URINE NEGATIVE (NEGATIVE); LEUKOCYTE ESTERASE,URINE NEGATIVE (NEGATIVE); NITRITE,URINE NEGATIVE (NEGATIVE); OCCULT BLOOD,URINE NEGATIVE (NEGATIVE); PH,URINE 6.5 (5.0-8.0); PROTEIN,URINE TRACE mg/dL (NEGATIVE); UROBILINOGEN,URINE 0.2 EU/dL (<2.0)
[2025-01-01 14:02] LABS: BACTERIA,URINE RARE (NEGATIVE); EPITHELIAL CELLS,URINE RARE (NONE-FEW); RBC,URINE 0-1 (0-2/HPF); WBC,URINE 0-2 (0-5/HPF)
[2025-01-01] MEDS ORDERED: Sodium Chloride 0.9% 500 ML IV SCH (14:30)
== END 2025-01-01 15:22 | disposition home or self-care (01) ==
LOC: MW.ED 09:47
DX: R55 Syncope and collapse (principal); E86.0 Dehydration; I10 Essential (primary) hypertension; M19.90 Unspecified osteoarthritis, unspecified site; Z79.899 Other long term (current) drug therapy; Z88.2 Allergy status to sulfonamides; Z88.8 Allergy status to other drugs, medicaments and biological substances; Z90.49 Acquired absence of other specified parts of digestive tract; Z90.710 Acquired absence of both cervix and uterus
CPT/HCPCS: 36415; 70450; 70544; 70549; 70553; 71045; 71275; 80053; 81001; 82947; 83735; 83880; 84484; 85025; 85379; 93005; 96360; 99284; A9270; J7120; Q9967; 93010